=== PATIENT | male | born 1995 | race Asian ===

== ENCOUNTER 2023-03-29 08:55 | Emergency (ER) | payer SELFPAY ==
[2023-03-29 09:04] VITALS: BP 140/100; PULSE 120; RESP 22; TEMP 36.7; O2SAT 97
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
--- NOTE | 2023-03-29 09:18 | CRLHL7_ITS ---
For Patients: As a result of the Cures Act, medical imaging exams and procedure reports are released immediately into your electronic medical record. You may view this report before your referring provider. If you have questions, please contact your health care provider. INDICATION: Asthma/wheezing TECHNIQUE: Chest 1 views. COMPARISON: None. FINDINGS: Cardiovascular and mediastinum: Heart size and vasculature are normal in caliber and appearance. Lungs and pleural spaces: Mild parahilar opacities may represent reactive airway process and/or are viral infection. No focal consolidation. No sign of pleural effusion. No pneumothorax. Bones and soft tissues: No significant findings. IMPRESSION: Mild parahilar opacities may represent reactive airway process and/or are viral infection. Dictated by Parmjit Borja MD @ 03/29/2023 9:45:46 AM (Electronically Signed)
[2023-03-29] MEDS: IPRAT-ALBUT 0.5-2.5 MG/3 ML NEB 1 NEB IH (09:20)
[2023-03-29 10:00] VITALS: RESP 24; O2SAT 95
--- NOTE | 2023-03-29 10:02 | RESP.RT ---
Patient has Hx of asthma, SOB just walking in from car. Bilateral lungs sounds with Musically wheeze noted all [place], slightly diminished in bases. Patient does not use Spacer with Albuterol MDI. Spacer given to patient and instruction on why, and use of space to receive more of Drug to lung [place]. Patient also only waits couple of seconds between puffs, explained chamber in MDI had to refill for him to get full capacity of medication. Patient return demonstration of 2 puffs 5 minutes apart with spacer on MDI. Good inhalation and breath hold. Half hour later DuoNeb given with small volume nebulizer, mouth piece, and Oxygen flow at 7 Lpm. Patient used well. Peak flow done with patient, pre-treatments 190 Lpm, post treatments 220 Lpm. Post treatments Patient able to take larger breath, SaO2 97%, Musically wheeze improved along with short expiratory phase of breathing.
[2023-03-29 10:06] LABS: Basophils Percent Auto 0.6 % (0.0-3.0); Eosinophils Percent Auto 5.3 % (0.0-7.0); Hematocrit 42.8 % (37.0-53.0); Hemoglobin* 14.2 gm/dL (13.5-17.5); Immature Granulocytes Pct Auto 0.2 %; Lymphocytes Percent Auto 17.9 % (20-44); Mean Corpuscular HGB Conc 33 gm/dL (32-36); Mean Corpuscular Hemoglobin 22 pg (26-34); Mean Corpuscular Volume 68 fL (80-100); Monocytes Percent Auto 5.9 % (0.0-11.0); Neutrophils Percent Auto 70.1 % (42.0-72.0); Platelet Count* 396 K/uL (140-440); RDW Coefficient of Variation % 16.4 % (11.5-15.5); Red Blood Count 6.33 m/uL (4.30-5.90); White Blood Count* 11.17 K/uL (4.50-11.00)
[2023-03-29 10:26] LABS: Slide Review Reflex No
[2023-03-29 10:36] LABS: C Reactive Protein* < 0.5 mg/dL (0.5-1.0)
[2023-03-30 05:06] LABS: Procalcitonin* 0.06 ng/mL (<0.50)
== END 2023-03-29 11:45 | disposition home or self-care (01) ==
PROVIDERS: Emergency Provider Family Medicine
DX: J45.901 Unspecified asthma with (acute) exacerbation (principal)
CPT/HCPCS: 36415; 71045; 84145; 85025; 86140; 94640; 99284

== ENCOUNTER 2025-03-25 19:08 | Observation (INO) | payer OTHER, SELFPAY ==
[2025-03-25] VITALS (8 sets, daily range): BP systolic 128–164; BP diastolic 85–97; PULSE 106–136; RESP 18–30; TEMP 36.7–37.2; O2SAT 90–98; BMI 25.1
--- OUTSIDE RECORDS SUMMARY | 2025-03-25 19:09 | XMS_ITS | Clinical Summary ---
Author Organization [facility] Address [address] [place] [address] Care Team Providers Care Dipper Fish Name Role Phone Unavailable Primary Care Provider Unavailabl e Source Comments You are receiving this document as you are listed as the primary care provider,follow-up provider, or the patient has been referred to you for consultation.This is in compliance with the Medicare and[facility] EHR Incentive Program,which states Providers who transition their patient to another setting of careor provider of care or refers their patient to another provider of care shouldprovide summary care record for each transition of care or referral. [facility] Allergies No known active allergies Medications fluticasone HFA (FLOVENT HFA) 110 mcg/puff inhaler Inhale 1 Puff two times a day. Rinse mouth/gargle after use Active cetirizine (ZYRTEC) 10 MG tablet Take 1 Tablet (10 mg) by mouth daily. (Pt takes this as needed) Active clotrimazole-be tamethasone (LOTRISONE) 1-0.05 % cream Apply topically two times a day. (Pt takes as needed) Active ALBUterol sulfate HFA 108 (90 Base) MCG/ACT inhaler Inhale 2 Puffs by mouth every 4 hours as needed for Wheezing or Shortness of Breath. Do not use more than 12 puffs in 24 hours. 18 g 01/24/2025 10:24 AM CDT Active ipratropium-alb uterol (DUONEB) 0.5-2.5 (3) mg/3ml nebulizer solution Inhale the contents of 1 vial (3 mL) by mouth via nebulizer every 6 hours as needed for Wheezing. 90 mL 4 01/24/2025 10:24 AM CDT Active Active Problems Problem Noted Date Diagnosed Date Acute severe exacerbation of asthma 01/23/2025 Anemia 07/11/2008 Overview (07/11/2008): Hgb 12.3 with low MCV and high RDW. most likely iron deficiency anemia. Will start multivitamin and recheck in 3-6 months (early 2008) Acne 07/07/2008 Learning Disorder 09/22/2006 Overview (09/22/2006): Has very slow processing speed. Per school nurse, he can seem inattentive at times due to his extremely slow processing speed. Attention deficit disorder 05/15/2005 Overview (06/07/2015): Changed from Metadate to Concerta do to insurance issues and also did better on Concerta. Doing well. Behaviour is excellent. Has IEP and extensive help. Also has Processing speed disorder. Epic Asthma 10/01/2004 Overview (05/17/2013): Green Zone: Asmanex, 2 puffs once a day If the patient desires, may use albuterol 30 minutes before exercise Yellow Zone: Asmanex 2 puffs once a day Also Albuterol MDI or nebulization twice daily AND every 4 hours as needed for coughing, wheezing, asthma symptoms Red Zone: Asmanex 2 puffs once a day Also Albuterol MDI or nebulization every 4 hours scheduled for coughing, wheezing, asthma symptoms. Patient should also follow up with me the same day, or in the ER/Urgent care on off hours if in red zone Jam Ugalde MD 05/17/2013 Encounters Date Type Department Care Team Description 01/23/2025 8:05 AM CDT Ancillary Procedure [facility] [address] [place] [address] 01/23/2025 7:56 AM CDT - 01/24/2025 10:58 AM CDT Hospital Encounter [facility] [address] [place] [id number] Jeremiah Mello MD Albrecht, RACHID Adams Ardiana, MD Asthma with acute exacerbation, unspecified asthma severity, unspecified whether persistent (HRC) (Primary Dx) Discharge Disposition: Home from Last 3 Months Immunizations Immunization Administration Dates Next Due 4vHPV (Gardasil) 05/17/2013 DTP-Hib (Tetramune) 05/16/1998,04/07/1996,1995 DTaP 03/28/2002 Flu Vac (3+ yrs) 07/06/2008 [id number] 10/18/2009 HepB Ped/Adol (0-18 yrs) 05/16/1998,04/07/1996,0 01/20/1996 IPV (Polio) 03/28/2002 Influenza LAIV (Nasal, 2-49 yrs) 05/17/2013 Influenza LAIV3 2-49 years (Flumist) 05/23/2011 MCV4 (Menactra) 05/17/2013,07/06/2008 MMR 03/28/2002,05/16/1998 Moderna Monovalent 12+ 12/25/2020,11/28/2020 OPV, Trivalent (Orimune or tOPV) 05/16/1998,1995,01/20/1996 Pfizer Bivalent 12+ 07/17/2022 TB Skin Test (PPD) 03/30/2002 Td 01/14/2005 Tdap 05/23/2011 Varicella 07/06/2008,05/16/1998 Family History Medical History Relation Name Comments Hypertension Paternal Grandfather Cataract Negative Family History Glaucoma Negative Family History Macular Degeneration Negative Family History Relation Name Status Comments Paternal Grandfather Social History Tobacco Use Types Packs/Day Years Used Date Smoking Tobacco: Never Smokeless Tobacco: Never Alcohol Use Standard Drinks/Week Comments No 0 (1 standard drink = 0.6 oz pur e alcohol) Sex and Gender Information Value Date Recorded Sex Assigned at Not on file Legal Sex Male 5:21 AM CDT Gender Identity Not on file Sexual Orientation Not on file Last Filed Vital Signs Vital Sign Reading Time Taken Comments Blood Pressure 117/72 01/24/2025 7:35 AM CDT Pulse 97 01/24/2025 7:35 AM CDT Temperature 36.4 C (97.6 F) 01/24/2025 7:35 AM CDT Respiratory Rate 18 01/24/2025 7:35 AM CDT Oxygen Saturation 100% 01/24/2025 7:35 AM CDT Inhaled Oxygen Concentration - - Weight 69.1 kg (152 lb 4.8 oz) 01/23/2025 5:58 P M CDT Height 165.1 cm (5' 5) 01/23/2025 5:58 PM CDT Body Mass Index 25.34 01/23/2025 5:58 PM CDT Plan of Treatment Health Maintenance Due Date Last Done Comments Hep C Screening (Preventive Services) 1995 Asthma ACT (score of 20 or higher) 1999 HIV Screening (Preventive Services) 2011 HPV Vaccine (2 - Male 3-dose series) 06/14/2013 05/17/2013 Adult Preventive Visit 11/22/2013 3, 05/23/2011, 07/06/2008, Additional history exists Pneumococcal Vaccine (1 of 2 - PCV) 11/22/2014 DTaP/Tdap/Td Vaccine (6 - Tdap) 05/23/2021 05/23/2011, 01/14/2005, 03/28/2002, Additional history exists COVID-19 Vaccine ( season) 2024 07/17/2022, 12/25/2020, 11/28/2020 Influenza Vaccine (#1) 2025 3, 05/23/2011, 07/06/2008 Zoster/Shingles Vaccine (1 of 2) 11/22/2045 HepB Vaccine Completed 05/16/1998, 09/1995, 01/20/1996 Hib Vaccine Completed 05/16/1998, 09/1995, 01/20/1996 Varicella Vaccine Completed 07/06/2008, 05/16/1998 MCV4 Vaccine Completed 05/17/2013, 07/06/2008 HepA Vaccine Aged Out No longer eligi ble based on patient's age to complete this topic Meningococcal B Vaccine Aged Out No l onger eligible based on patient's age to complete this topic Procedures Procedure Name Priority Date/Time Associated Diagnosis Comments RSV, MOLECULAR DETECTION STAT 01/23/2025 1:20 PM CDT INFLUENZA VIRUS A AND B, MOLECULAR DETECTION STAT 01/23/2025 1:20 PM CDT 2019 NOVEL CORONAVIRUS STAT 01/23/2025 1:20 PM CDT COVID/INFLUENZA A&B/RSV STAT 01/23/2025 1:20 PM CDT XR CHEST 2 VIEWS STAT 01/23/2025 9:00 AM CDT ECG-ROUTINE 12 LEAD; INTRPT & REPRT STAT 01/23/2025 8:06 AM CDT from Last 3 Months Results * RSV RNA, Molecular Detection (01/23/2025 1:20 PM CDT) [facility] RSV by PCR Not Detected Not Detected 01/23/2025 2:10 PM CDT [facility] Swab (Source Required) (Nasopharyngeal swab) Non-blood Collection / Unknown 01/23/2025 1:20 PM CDT 01/23/2025 1:28 PM CDT [facility] 01/23/2025 2:10 PM CDT Method: Qualitative real-time PCR assay to detect RSV Viral RNA. us Jeremiah Mello MD LAB_1 [place] [address], [facility] * Influenza A and B by PCR (01/23/2025 1:20 PM CDT) [facility] INFLUENZA A MOLECULAR Not Detected Not Detected 01/23/2025 2:10 PM CDT [facility] INFLUENZA B MOLECULAR Not Detected Not Detected 01/23/2025 2:10 PM CDT [facility] Swab (Source Required) (Nasopharyngeal swab) Non-blood Collection / Unknown 01/23/2025 1:20 PM CDT 01/23/2025 1:28 PM CDT [facility] 01/23/2025 2:10 PM CDT Methodology: Qualitative real-time PCR assay to detect the Influenza type A and type B viral RNA us Jeremiah Mello MD LAB_1 Final Res ult Performing Organization Address [facility] Co de Phone Number [address] * 2019 Novel Coronavirus (COVID-19) (01/23/2025 1:20 PM CDT) COVID-19 Interpretation Not Detected Not Detected 01/23/2025 2:10 PM CDT [facility] Comment:Methodology: Test pe rformed by real-time PCR Source Nasopharyngeal swab 01/23/2025 2:10 PM CDT [facility] Swab (Source Required) (Nasopharyngeal swab) Non-blood Collection / Unknown 01/23/2025 1:20 PM CDT 01/23/2025 1:28 PM CDT us Jeremiah Mello MD LAB_1 Final Res ult Performing Organization Address [facility] de Phone Number [address] * XR Chest 2 Views (01/23/2025 9:00 AM CDT) Anatomical Region Laterality Modality Chest, Lung Computed Radiogr aphy 01/23/2025 9:00 AM CDT Narrative 01/23/2025 9:06 AM CDT EXAM: XR CHEST 2 VIEWS LOCATION: [facility] DATE: 01/23/2025 INDICATION: Shortness of breath, DYSPNEA COMPARISON: PA and lateral views the chest 10/31/2024 IMPRESSION: Negative chest. Procedure Note Alex Ceja MD - 01/23/2025 EXAM: XR CHEST 2 VIEWS LOCATION: [facility] DATE: 01/23/2025 INDICATION: Shortness of breath, DYSPNEA COMPARISON: PA and lateral views the chest 10/31/2024 IMPRESSION: Negative chest. us Jeremiah Mello MD RAD GD Final Res ult * ECG 12-Lead STAT (EKG) (01/23/2025 8:06 AM CDT) Ventricular Rate 112 BPM [facility] Atrial Rate 112 BPM [facility] P-R Interval 170 ms [facility] QRS Duration 80 ms [facility] QT 322 ms [facility] QTC 439 ms MUSE [facility] P [place] 78 degrees MUSE GHP R [place] 86 degrees MUSE GHP T [place] 54 degrees [facility]USE [facility] 01/23/2025 8:06 AM CDT Narrative [facility] - 01/23/2025 9:28 AM CDT Poor data quality, interpretation may be adversely affected Sinus tachycardia Otherwise normal ECG When compared with ECG of 31-OCT-2024 16:24, No significant change was found Confirmed by Aminah Mullins ([id number]) on 01/23/2025 9:28:06 AM Procedure Note Aminah Mullins MD - 01/23/2025 Poor data quality, interpretation may be adversely affected Sinus tachycardia Otherwise normal ECG When compared with ECG of 31-OCT-2024 16:24, No significant change was found Confirmed by Aminah Mullins ([id number]) on 01/23/2025 9:28:06 AM us Jeremiah Mello MD EKG Final Res ult [facility] [address] [place] [address] from Last 3 Months Insurance [employer] Advance Directives * Full Code (Latest Code Status on File) Date Activated Date Inactivated Comments 01/23/2025 6:35 PM 01/24/2025 1:03 PM
--- OUTSIDE RECORDS SUMMARY | 2025-03-25 19:09 | XMS_ITS | Clinical Summary ---
Author Organization [facility] Address [address] [place] [address] Care Team Providers Care Truck Driving Instructor Name Role Phone Clinic, No Pcp Or Primary Care Provider Unavaila ble Social History Tobacco Use Types Packs/Day Years Used Date Smoking Tobacco: Never Assessed Sex and Gender Information Value Date Recorded Sex Assigned at Not on file Legal Sex Male 5:31 AM COVER STRIPPER Gender Identity Not on file Sexual Orientation Not on file Plan of Treatment Not on file Care Teams Truck Driving Instructor Relationship Specialty Start Date End Date Clinic, No Pcp Or . PCP - General 03/29/23
--- OUTSIDE RECORDS SUMMARY | 2025-03-25 19:09 | XMS_ITS | Encounter Summary ---
Author Organization [facility] Address [address], [place] [address] Care Team Providers Care Peanut Sheller Name Role Phone Jam Lawrence MD Primary Care Provide r Encounter Details Date Type Department Care Team (Late st Contact Info) Description 05/17/2013 Correspondence [facility] [address] [place], [place] [id number] Jam Lawrence MD [address] [place] [address] PROOF OF DELIVERY Social History Tobacco Use Types Packs/Day Years Used Date Smoking Tobacco: Passive Smo ke Exposure - Never Smoker Comments:per mom no one smok es at home Alcohol Use Standard Drinks/Week Comments No 0 (1 standard drink = 0.6 oz pur e alcohol) Sex and Gender Information Value Date Recorded Sex Assigned at Not on file Legal Sex Male 5:21 AM CDT Gender Identity Not on file Sexual Orientation Not on file documented as of this encounter Progress Notes * Jam Lawrence MD - 05/17/2013 12:00 AM CDT documented in this encounter Plan of Treatment Not on file documented as of this encounter Visit Diagnoses Not on filedocumented in this encounter Additional Health Concerns Infection Onset Date Last Indicated Resolved Time R/O COVID19 04/12/2021 04/12/2021 04/12/2021 8:36 PM CDT R/O COVID19 05/03/2021 05/03/2021 05/03/2021 1:29 PM CDT R/O COVID19 05/04/2022 05/04/2022 05/04/2022 11:5 0 AM CDT R/O COVID19 01/23/2025 01/23/2025 01/23/2025 2:10 PM CDT documented as of this encounter Care Teams Peanut Sheller Relationship Specialty Start Date End Date Jam Lawrence MD [address] [facility] [place] [address] PCP - General 11/08/04 01/24/25 documented as of this encounter
--- OUTSIDE RECORDS SUMMARY | 2025-03-25 19:09 | XMS_ITS | Clinical Summary ---
Author Organization [facility] Address [address] [place] [id number] Care Team Providers Care Sustainable Communities Designer Name Role Phone Unavailable Primary Care Provider Unavailabl e Allergies Active Allergy Reactions Criticality Noted Date Comments Gentamicin Sulfate Itching 12/25/2005 Medications ALBUTEROL 90 MCG/ACT IN AERS 1-2 puffs Q 4-6 hrs prn 1 11 12/22/2005 Active UNKNOWN MED DOSAGE Flovent 0 12/22/2005 Active Social History Tobacco Use Types Packs/Day Years Used Date Smoking Tobacco: Never Alcohol Use Standard Drinks/Week Comments Not Asked 0 (1 standard drink = 0.6 oz pur e alcohol) Adolescent Education Answer Date Record ed Getting School Help Needed Not on file 06/23 Sex and Gender Information Value Date Recorded Sex Assigned at Not on file Legal Sex Male 4:42 AM PHYSICIAN CREDENTIALING SPECIALIST Gender Identity Not on file Sexual Orientation Not on file Last Filed Vital Signs Vital Sign Reading Time Taken Comments Blood Pressure 118/80 09/28/2020 11:29 AM PHYSICIAN CREDENTIALING SPECIALIST Pulse - - Temperature 36.9 C (98.4 F) 12/24/2005 11:15 AM CDT Respiratory Rate - - Oxygen Saturation - - Inhaled Oxygen Concentration - - Weight 32.7 kg (72 lb) 12/24/2005 11:15 AM CDT Height 134.6 cm (4' 5) 12/22/2005 12:15 PM CDT Body Mass Index 18.02 12/22/2005 12:15 PM CDT Plan of Treatment Not on file Insurance [facility]
--- NOTE | 2025-03-25 19:13 | CRLHL7_ITS ---
For Patients: As a result of the Century Cures Act, medical imaging exams and procedure reports are released immediately into your electronic medical record. You may view this report before your referring provider. If you have questions, please contact your health care provider. INDICATION: Shortness of breath. TECHNIQUE: Chest 2 views. COMPARISON: None. FINDINGS: Cardiovascular and mediastinum: Heart size and vasculature are normal in caliber and appearance. Lungs and pleural spaces: Lungs are clear. No sign of infiltrate or mass. No sign of pleural effusion. No pneumothorax. Bones and soft tissues: No significant findings. IMPRESSION: No acute or significant findings. Dictated by Kanu Mares MD @ 03/25/2025 8:02:14 PM (Electronically Signed)
--- NOTE | 2025-03-25 19:17 | ED.GENADULT ---
HPI - General Adult General Chief complaint: Asthma Stated complaint: asthma attack Time Seen by Provider: 03/25/25 19:12 Source: patient Mode of arrival: ambulatory Limitations: no limitations History of Present Illness HPI narrative: 29-year-old male presents today with an asthma attack. States that his last 1 was about 2 months ago. Patient has a daily albuterol inhaler inhaler and a nebulizer with albuterol that he uses p.r.n. states that yesterday evening started clinic slightly short of breath and then today of shortness of breath progressed to the point where he is having a very difficult time breathing. He denies fevers. He does have a mild cough. He feels like his asthma is probably not properly controlled. Related Data Home Medications ?Medication ?Instructions ?Recorded ?Confirmed albuterol sulfate 90 mcg/actuation 1 inh inhalation Q4-6H PRN 03/29/23 03/29/23 aerosol inhaler Previous Rx's ?Medication ?Instructions ?Recorded azithromycin 250 mg tablet See Rx Instructions PO .COMPLEX #6 03/29/23 tabs prednisone 20 mg tablet 20 mg PO BID #10 tabs 03/29/23 Allergies Allergy/AdvReac Type Severity Reaction Status Date / Time No Known Drug Allergies Allergy Verified 03/29/23 09:02 Review of Systems Status of ROS: Reports: 10 or more systems reviewed and unremarkable except as noted in History and below Exam Narrative: Exam Narrative: Well-nourished well-developed patient in acute respiratory distress. Alert and oriented x3. Answers questions appropriately. Mood and affect are appropriate. Thoughts are goal oriented and rational. No tangential or magical thinking noted. Patient cannot put 3 words together without needing catch his breath. He is tachypneic and tachycardic. HEENT: Normocephalic atraumatic. Pupils are equally round reactive to light. Extraocular muscles are intact. Conjunctivae are moist without any icterus noted. Moist mucous membranes. Posterior pharynx is normal. Neck is soft. Cardiovascular: Tachycardic. Lungs: Diffuse wheezing bilaterally. Extremities: Bilateral lower extremities are without edema. Skin: Well perfused. Const: Vital Signs, click to edit/add: Vital Signs - 24 hr 03/25/25 19:09 03/25/25 19:13 03/25/25 19:53 Temperature 98.0 F 98.5 F Pulse Rate [Left P ulse Oximeter] 136 H 126 H Respiratory Rate 30 H 18 Blood Pressure [Ri ght Upper Arm] 164/97 H 135/88 Pulse Oximetry 90 96 98 Oxygen Delivery Me thod Room Air Room Air Course Course ED Course: Upon arrival patient immediately had a DuoNeb. At the same time IV was established. Patient received oral dose of prednisone. Repeat examination revealed that the patient felt significantly better. Respiratory rate had come down to 24, pulse 126. He went from 90% on room air to 98%. Wheezing was still present bilaterally. Repeat DuoNeb was done. This helped even more. Respiratory came down to 20, 98% on room air. Patient still had bilateral wheezing present. Chest x-ray, read by me, is unremarkable. CBC showed a white cell count of 13.8, MCV of 68 and MCH of 23. Chemistries were unremarkable. Triple swab pending at this time. Vital Signs Vital signs: Initial Vital Signs Temperature 98.0 F 03/25/25 19:09 Temperature Source Temporal Artery Scan 03/25/25 19:09 Pulse Rate 136 H 03/25/25 19:09 Pulse Rhythm Regular 03/25/25 19:09 Respiratory Rate 30 H 03/25/25 19:09 Blood Pressure 164/97 H 03/25/25 19:09 Blood Pressure Mean 119 H 03/25/25 19:09 Blood Pressure Position Sitting 03/25/25 19:09 Pulse Oximetry 90 03/25/25 19:09 Oxygen Delivery Method Room Air 03/25/25 19:09 Vital Signs Temperature 98.0 F 03/25/25 19:09 Pulse Rate 136 H 03/25/25 19:09 Respiratory Rate 30 H 03/25/25 19:09 Blood Pressure 164/97 H 03/25/25 19:09 Pulse Oximetry 90 03/25/25 19:09 Oxygen Delivery Method Room Air 03/25/25 19:09 Temperature 98.5 F 03/25/25 19:53 Pulse Rate 126 H 03/25/25 19:53 Respiratory Rate 18 03/25/25 19:53 Blood Pressure 135/88 03/25/25 19:53 Pulse Oximetry 98 03/25/25 19:53 Oxygen Delivery Method Room Air 03/25/25 19:53 Medications Administered Medications: Discontinued Medications Generic Name Dose Route Start Last Admin Trade Name Freq PRN Reason Stop Dose Admin Albuterol/Ipratropium 1 [facility] 03/25/25 19:12 03/25/25 19:21 Iprat-Albut 0.5-2.5 Mg/3 Ml [facility] 03/25/25 19:13 1 [facility] ONCE ONE Administration Albuterol/Ipratropium 1 [facility] 03/25/25 19:34 03/25/25 19:42 Iprat-Albut 0.5-2.5 Mg/3 Ml [facility] 03/25/25 19:35 1 [facility] ONCE ONE Administration Prednisone 50 mg 03/25/25 19:12 03/25/25 19:21 Prednisone 10 Mg Tablet PO 03/25/25 19:13 50 mg ONCE ONE Administration Medical Decision Making MDM Narrative Medical decision making narrative: 29-year-old male presenting with an acute exacerbation of asthma. Still having a lot of wheezing after 2 DuoNebs, still a bit tachypneic with a respiratory rate of 20. Patient will be admitted for further management. Lab Data Lab results reviewed: Yes I reviewed the patient's lab results Labs: Lab Results 03/25/25 Range/Units 19:31 WBC 13.88 H (4.50-11.00) K/uL RBC 6.11 H (4.30-5.90) m/uL Hgb 14.0 (13.5-17.5) gm/dL Hct 41.7 (37.0-53.0) % MCV 68 L (80-100) fL MCH 23 L (26-34) pg MCHC 34 (32-36) gm/dL RDW Coeff of Varun 16.0 H (11.5-15.5) % Plt Count 391 (140-440) K/uL Neut % (Auto) 59.9 (42.0-72.0) % Lymph % (Auto) 21.2 (20-44) % [place] % (Auto) 7.3 (0.0-11.0) % Eos % (Auto) 10.6 H (0.0-7.0) % Baso % (Auto) 0.7 (0.0-3.0) % Neut # (Auto) 8.30 H (1.7-7.0) K/uL Lymph # (Auto) 2.90 (0.90-2.90) K/uL [place] # (Auto) 1.00 H (0.00-0.90) K/UL Eos # (Auto) 1.50 H (0.00-0.50) K/uL Baso # (Auto) 0.10 (0.00-0.30) K/uL Abs Immat Gran (auto) 0.00 (0.00-0.30) K/uL Imm/Tot Granulo (auto) 0.3 % Sodium 142 (135-149) mmol/L Potassium 3.7 (3.6-5.1) mmol/L Chloride 101 (96-114) mmol/L Carbon Dioxide 30 (20-32) mmol/L Anion Gap 11 (7-15) mEq/L BUN 7 (5-24) mg/dL Creatinine 0.9 (0.5-1.5) mg/dL Estimated Creat Clear 113.23 Estimated GFR 119 ml/min Glucose 98 (60-115) mg/dL Calcium 9.5 (8.4-10.6) mg/dL Imaging Data Chest x-ray: Attestation: I have reviewed the pertinent imaging results. Radiologist's impression: TECHNIQUE: Chest 2 views. COMPARISON: None. FINDINGS: Cardiovascular and mediastinum: Heart size and vasculature are normal in caliber and appearance. Lungs and pleural spaces: Lungs are clear. No sign of infiltrate or mass. No sign of pleural effusion. No pneumothorax. Bones and soft tissues: No significant findings. IMPRESSION: No acute or significant findings. Discharge Plan Discharge Clinical Impression: Asthma with acute exacerbation Patient Disposition: Admitted As Observation Condition: Stable
[2025-03-25] MEDS: IPRAT-ALBUT 0.5-2.5 MG/3 ML NEB 1 NEB IH ×3 (19:21→20:32)
[2025-03-25 19:37] LABS: Hematocrit 41.7 % (37.0-53.0); Hemoglobin* 14.0 gm/dL (13.5-17.5); Immature Granulocytes Pct Auto 0.3 %; Mean Corpuscular HGB Conc 34 gm/dL (32-36); Mean Corpuscular Hemoglobin 23 pg (26-34); Mean Corpuscular Volume 68 fL (80-100); RDW Coefficient of Variation % 16.0 % (11.5-15.5); Red Blood Count 6.11 m/uL (4.30-5.90); White Blood Count* 13.88 K/uL (4.50-11.00)
[2025-03-25 19:39] LABS: Immature Granulocytes Abs Auto 0.00 K/uL (0.00-0.30); Lymphocytes Absolute Auto 2.90 K/uL (0.90-2.90)
[2025-03-25 19:49] LABS: Chloride* 101 mmol/L (96-114)
[2025-03-25 19:50] LABS: Potassium* 3.7 mmol/L (3.6-5.1); Sodium* 142 mmol/L (135-149)
[2025-03-25 19:52] LABS: Blood Urea Nitrogen* 7 mg/dL (5-24); Creatinine* 0.9 mg/dL (0.5-1.5); Est. Creatinine Clearance* 113.23; Estimated Glomerular Filt Rate 119 ml/min
[2025-03-25 19:53] LABS: Anion Gap 11 mEq/L (7-15); Calcium* 9.5 mg/dL (8.4-10.6); Carbon Dioxide* 30 mmol/L (20-32); Glucose* 98 mg/dL (60-115)
[2025-03-25 20:14] LABS: PCR FLU A Negative PCR FLU A (Negative); PCR FLU B Negative PCR FLU B (Negative); PCR RSV Negative PCR RSV (Negative); SARS PCR* Negative SARS-CoV-2 (Negative)
[2025-03-25 20:34] LABS: Slide Review Reflex No
--- NOTE | 2025-03-25 21:03 | P.IMHP_ITS ---
Assessment and Plan Assessment and plan (1) Asthma with acute exacerbation: Problem comment: Monitor O2 Sat Started methylprednisolone IV 40 mg x 3 Scheduled Duonebs + PRN As CXR is clear, no Abx for now, but if he develops any S&S of infection, will start him on Abx. Patient will need a scheduled steroid inhaler and/ or LABA inhaler on D/C to control his asthma Status: Acute (2) Sinus tachycardia: Problem comment: 2/2 asthma exacerbation awake overnight monitor Status: Acute (3) Leukocytosis: Problem comment: Likely reactive Will monitor Status: Acute (4) Eczema: Problem comment: He was prescribed a cream for that Status: Acute Total Time Spent Total Time Spent: Time spent: Today I spent 75 minutes seeing the patient, discussing the patient with ER staff, reviewing Expanse and EPIC notes/diagnostics, discussing the care plan with our care time that includes social work, PT/OT, pharmacy, RT, alf and documenting my impressions and plan in the medical record. Hospitalist- H&P: HPI History of Present Illness Date Seen: 03/25/25 Chief complaint: asthma attack Narrative: Asael Rolon is a 29 year old male with past medical history of asthma. Patient started to have shortness of breath that was not controlled with albuterol, knowing that patient is using both an inhaler and a nebulizer of albuterol. He is not using a scheduled steroid inhaler and/ or LABA inhalers. Patient had 2 asthma exacerbations in the past year, the most recent 1 was about a month or 2 months ago. Patient states that when he was younger his asthma was not a problem but it has been progressing. He was admitted previously for an asthma attack but he denies history of intubation. At the ED, patient was tachycardic, increased work of breathing, satting ~90% on RA. CXR clear. Review of Systems Status of ROS: Reports: 6 or more systems reviewed and unremarkable except as noted in History and below Meds Home Medications and Allergies Home Medications ?Medication ?Instructions ?Recorded ?Confirmed ?Type albuterol sulfate 90 mcg/actuation 1 inh inhalation Q4 -6H PRN 03/29/23 03/29/23 History aerosol inhaler azithromycin 250 mg tablet See Rx Instructions PO .COM PLEX #6 03/29/23 Rx tabs prednisone 20 mg tablet 20 mg PO BID #10 tabs Rx Allergies Allergy/AdvReac Type Severity Reaction Status Date / Time No Known Drug Allergies Allergy Verified 03/29/23 09:02 Exam Narrative: Exam Narrative: Physical exam GENERAL: Patient is on room air, unable to complete a sentence without catching his breath HEAD AND NECK: Atraumatic, normocephalic CARDIOVASCULAR: Tachycardic. Normal S1, S2. RESPIRATORY: Clear to auscultation, +ve wheezes B/l. NEUROLOGY: Alert, awake, oriented X 3. Normal speech. SKIN: Rash around the right elbow area. PSYCH: Normal mood, normal affect. Const: Vital Signs, click to edit/add: Vital Signs - 24 hr 03/25/25 19:09 03/25/25 19:13 03/25/25 19:53 Temperature 98.0 F 98.5 F Pulse Rate [Left P ulse Oximeter] 136 H 126 H Respiratory Rate 30 H 18 Blood Pressure [Ri ght Upper Arm] 164/97 H 135/88 Pulse Oximetry 90 96 98 Oxygen Delivery Me thod Room Air Room Air 03/25/25 20:07 Temperature Pulse Rate [Left P ulse Oximeter] 120 H Respiratory Rate Blood Pressure [Ri ght Upper Arm] Pulse Oximetry 98 Oxygen Delivery Me thod Room Air Hospitalist - H&P: Result Labs Labs: Short CBC 03/25/25 Range/Units 19:31 WBC 13.88 H (4.50-11.00) K/uL Hgb 14.0 (13.5-17.5) gm/dL Hct 41.7 (37.0-53.0) % Plt Count 391 (140-440) K/uL [facility] 03/25/25 19:31 Sodium 142 Potassium 3.7 Chloride 101 Carbon Dioxide 30 BUN 7 Creatinine 0.9 Glucose 98 Calcium 9.5 Imaging Chest x-ray: Attestation: I have reviewed the pertinent imaging results. Radiologist's impression: TECHNIQUE: Chest 2 views. COMPARISON: None. FINDINGS: Cardiovascular and mediastinum: Heart size and vasculature are normal in caliber and appearance. Lungs and pleural spaces: Lungs are clear. No sign of infiltrate or mass. No sign of pleural effusion. No pneumothorax. Bones and soft tissues: No significant findings. IMPRESSION: No acute or significant findings.
[2025-03-25] MEDS: SODIUM CHLORIDE 0.9 % (FLUSH) 10 ML SYRINGE 5 ML IVF (22:11)
[2025-03-26 03:00] VITALS: BP 122/68; PULSE 106; RESP 18; TEMP 36.6; O2SAT 97
[2025-03-26] MEDS: IPRAT-ALBUT 0.5-2.5 MG/3 ML NEB 1 NEB IH ×2 (03:14→08:55)
--- NOTE | 2025-03-26 06:16 | PC.NURSE ---
Pt alert & oriented x 4 and able to make needs known. ?Pt up independently in room. ?VSS and room air. ?Pt reported no pain or n/v. Tele in place sinus tachycardia noted. Scheduled meds given per orders- see EMAR. Call light within reach. ?
[2025-03-26 06:26] LABS: Hematocrit 39.6 % (37.0-53.0); Hemoglobin* 13.3 gm/dL (13.5-17.5); Mean Corpuscular HGB Conc 34 gm/dL (32-36); Mean Corpuscular Hemoglobin 23 pg (26-34); Mean Corpuscular Volume 68 fL (80-100); Red Blood Count 5.83 m/uL (4.30-5.90); White Blood Count* 10.28 K/uL (4.50-11.00)
[2025-03-26 06:29] LABS: Slide Review Reflex No
[2025-03-26 07:00] VITALS: BP 123/79; PULSE 106; PULSE 113; RESP 16; TEMP 37.2; O2SAT 96
[2025-03-26] MEDS: SODIUM CHLORIDE 0.9 % (FLUSH) 10 ML SYRINGE 5 ML IVF (08:56)
[2025-03-26 11:13] VITALS: BP 124/84; PULSE 116; RESP 18; O2SAT 96
--- NOTE | 2025-03-26 12:01 | RESP.RT ---
Pt seen, sitting in chair. In no distress, RR even and easy at 16. BBS with good aeration, faint end expiratory wheeze in R upper lobe. Pt peak flow is 300L min. Pt reports that triggers for his asthma are air quality and fatigue. Has air conditioning at home. Pt has not seen pulmonary or have a primary care. Pt. should see pulmonary and beging pulmonary testing to classify Asthma. Pt should also be on SMART guidelines for therapy. A good inhaler would be Dulera or Symbicort for a resuce inhaler. This was explained to pt. He was not in agreement to seeing a provider as an out pt. at this time. He has asked for albuterol for neb therapy to use at home. Will ask provider for this as an out pt prescription.
--- NOTE | 2025-03-26 12:27 | PM.DS1 ---
DS: Providers Provider Time Seen by Provider: 09:39 Date Seen: 03/26/25 Date of admission: 03/25/25 20:55 Primary care physician: Not a Local Provider Admitting Clinician: Alyssa Rueda MD Attending Physician on discharge: Georgette Meléndez MD DS: Diagnosis Discharge Diagnosis (1) Asthma with acute exacerbation: Status: Acute Problem details: Monitor O2 Sat Started methylprednisolone IV 40 mg x 3 Scheduled Duonebs + PRN As CXR is clear, no Abx for now, but if he develops any S&S of infection, will start him on Abx. Patient will need a scheduled steroid inhaler and/ or LABA inhaler on D/C to control his asthma 03/26 good air movement, feels improved, no hypoxia. Seen by RT to do peak flow and review INH use. D/ch home today. I will prescribe more albuterol nebs, a steroid burst, and a twice a day steroid inhaler. I considered prescribing a combination ANURADHA/steroid inhaler for him to use as a rescue inhaler, but he states that he does not have symptoms in between asthma exacerbations, so I do not think he would get regular corticosteroid. Therefore, I will prescribe him a steroid inhaler that I have asked him to use twice a day whether he has symptoms or not and that he should establish care with a PCP. I also asked him to consider his living situation as he has an allergy with dogs and there are dogs and cats living in his sister's house where he is also living. (2) Sinus tachycardia: Status: Acute Problem details: 2/2 asthma exacerbation and albuterol use (3) Eczema: Status: Acute Problem details: He was prescribed a cream for that (4) Leukocytosis: Status: Resolved Problem details: Likely reactive Will monitor DS: Summary Hospital Course Hospital Course: Per H&P: Asael Rolon is a 29 year old male with past medical history of asthma. Patient started to have shortness of breath that was not controlled with albuterol, knowing that patient is using both an inhaler and a nebulizer of albuterol. He is not using a scheduled steroid inhaler and/ or LABA inhalers. Patient had 2 asthma exacerbations in the past year, the most recent 1 was about a month or 2 months ago. Patient states that when he was younger his asthma was not a problem but it has been progressing. He was admitted previously for an asthma attack but he denies history of intubation. At the ED, patient was tachycardic, increased work of breathing, satting ~90% on RA. CXR clear. He is better today: air movement and wheezing have improved and he is not hypoxic. He wants to go home. See diagnoses above for details. Time Spent with Patient Time attestation: Total time spent providing and/or coordinating discharge services: Exam Narrative: Exam Narrative: General: No acute distress. Awake, alert, oriented x3. No pallor. No jaundice. Cardiovascular: Regular rate and rhythm. No murmurs, gallops, or rubs. Respiratory: No respiratory distress. He is talking in complete sentences and able to carry on a conversation without any difficulty breathing. Rare expiratory wheeze, good air movement, no crackles. Extremities: No lower extremity edema. Const: Vital Signs, click to edit/add: Vital Signs - 24 hr 03/25/25 19:09 03/25/25 19:13 03/25/25 19:53 Temperature 98.0 F 98.5 F Pulse Rate Pulse Rate [Left P ulse Oximeter] 136 H 126 H Respiratory Rate 30 H 18 Blood Pressure [Le ft Arm] Blood Pressure [Ri ght Upper Arm] 164/97 H 135/88 Pulse Oximetry 90 96 98 Oxygen Delivery Ut thod Room Air Room Air 03/25/25 20:07 03/25/25 21:10 03/25/25 21:10 Temperature 99 F Pulse Rate Pulse Rate [Left P ulse Oximeter] 120 H 123 H Respiratory Rate 20 20 Blood Pressure [Le ft Arm] 128/85 Blood Pressure [Ri ght Upper Arm] Pulse Oximetry 98 95 95 Oxygen Delivery Ut thod Room Air Room Air Room Air 03/25/25 22:17 03/25/25 22:44 03/25/25 23:00 Temperature 99 F Pulse Rate 111 H Pulse Rate [Left P ulse Oximeter] 111 H 106 H Respiratory Rate 20 18 Blood Pressure [Le ft Arm] 128/85 Blood Pressure [Ri ght Upper Arm] Pulse Oximetry 95 Oxygen Delivery Ut thod Room Air 03/26/25 03:00 03/26/25 07:00 03/26/25 07:00 Temperature 97.9 F 98.9 F Pulse Rate Pulse Rate [Left P ulse Oximeter] 106 H 106 H Respiratory Rate 18 16 16 Blood Pressure [Le ft Arm] 122/68 123/79 Blood Pressure [Ri ght Upper Arm] Pulse Oximetry 97 96 Oxygen Delivery Me thod Room Air Room Air 03/26/25 07:00 03/26/25 11:13 Temperature Pulse Rate 113 H Pulse Rate [Left P ulse Oximeter] 116 H Respiratory Rate 18 Blood Pressure [Le ft Arm] 124/84 Blood Pressure [Ri ght Upper Arm] Pulse Oximetry 96 Oxygen Delivery Me thod Room Air DS: Data Data Completed and Pending Completed studies during hospitalization: Ordering Physician: Elissa Lopez M.D. Date of Service: 03/25/25 Procedure(s): XR chest 2V Accession Number(s): [id number] cc: Elissa Lopez M.D.; Provider,Not a Local~ For Patients: As a result of the Cures Act, medical imaging exams and procedure reports are released immediately into your electronic medical record. You may view this report before your referring provider. If you have questions, please contact your health care provider. INDICATION: Shortness of breath. TECHNIQUE: Chest 2 views. COMPARISON: None. FINDINGS: Cardiovascular and mediastinum: Heart size and vasculature are normal in caliber and appearance. Lungs and pleural spaces: Lungs are clear. No sign of infiltrate or mass. No sign of pleural effusion. No pneumothorax. Bones and soft tissues: No significant findings. IMPRESSION: No acute or significant findings. Dictated by Kanu Mares MD @ 03/25/2025 8:02:14 PM (Electronically Signed) Labs on day of discharge: Labs from last 24 hours 03/26/25 03/25/25 03/25/25 05:52 19:31 19:25 WBC 10.28 13.88 H RBC 5.83 6.11 H Hgb 13.3 L 14.0 Hct 39.6 41.7 MCV 68 L 68 L MCH 23 L 23 L MCHC 34 34 RDW Coeff of Varun 16.0 H Plt Count 374 391 Neut % (Auto) 59.9 Lymph % (Auto) 21.2 [place] % (Auto) 7.3 Eos % (Auto) 10.6 H Baso % (Auto) 0.7 Neut # (Auto) 8.30 H Lymph # (Auto) 2.90 [place] # (Auto) 1.00 H Eos # (Auto) 1.50 H Baso # (Auto) 0.10 Abs Immat Gran (auto) 0.00 Imm/Tot Granulo (auto) 0.3 Sodium 142 Potassium 3.7 Chloride 101 Carbon Dioxide 30 Anion Gap 11 BUN 7 Creatinine 0.9 Estimated Creat Clear 113.23 Estimated GFR 119 Glucose 98 Calcium 9.5 SARS-CoV-2 (PCR) Negative SARS-CoV-2 Influenza Type A (PCR) Negative PCR FLU A Influenza Type B (PCR) Negative PCR FLU B RSV (PCR) Negative PCR RSV Discharge Plan Discharge Disposition: Home, Self-Care Date of Admission: 03/25/25 20:55 Attending Provider on Discharge: Georgette Meléndez Primary Care Provider: Provider,Not a Local Condition: Stable Anticipated Discharge Date/Time: 03/26/25 12:42 Discharge Medications: New Pulmicort Flexhaler 180 mcg/actuation aerosol powdr breath activated 1 inh inhalation BID Qty: 1 3RF prednisone 20 mg tablet 60 mg PO DAILY 3 Days Qty: 6 0RF Continued STEROID OINTMENT Rx Instructions: TO RASH ON ARMS, UNKNOWN OINTMENT albuterol sulfate 2.5 mg /3 mL (0.083 %) solution for nebulization 2.5 mg inhalation Q4H PRNQty: 30 0RF albuterol sulfate 90 mcg/actuation HFA aerosol inhaler 2 inh inhalation Q4H PRN Discharge Orders: Discharge Order (Routine); Ordered 03/26/25 Ordered By: Georgette Meléndez Patient Education: Prednisone (By mouth), Budesonide (By breathing) (Flex de Pulmicort, Pulmicort Flexhaler,..., Asthma (DC) Additional Instructions: Establish PCP in 1 week Activity Level: No Restrictions Discharge Diet: Regular Follow Up Appointments: Provider,Not a Local [Primary Care Provider, Family Practice] Forms: [employer] Info Instructions Discharge Comments: Please establish a local provider and see within a week.
--- NOTE | 2025-03-26 13:31 | PC.NURSE ---
Pt doing well today. VSS. Denies pain. Denies SOB with activity. Slight expiratory wheezes in bilateral lower lobes. Nebulizers effective. Pt signed discharge instructions and patient belongings form. Pt discharged home via mother at 1330.
== END 2025-03-26 13:30 | disposition home or self-care (01) ==
LOC: ED 20:11 → MEDSURG 20:56
PROVIDERS: Admitting Provider Student in an Organized Health Care Education/Training Program; Emergency Provider Family Medicine; Visit Provider Student in an Organized Health Care Education/Training Program
DX: J45.901 Unspecified asthma with (acute) exacerbation (principal); R00.0 Tachycardia, unspecified; L30.9 Dermatitis, unspecified; D72.829 Elevated white blood cell count, unspecified
CPT/HCPCS: 36415; 71046; 80048; 85025; 85027; 87631; 94664; 94761; 96374; 99284; 99285; G0378; J2919; J7512